=== PATIENT | female | born 1950 | race Caucasian/White ===

== ENCOUNTER → 2016-12-08 | Outpatient (CLI) | payer OTHER | LOC: CIMAGING 14:26 | PROVIDERS: ATTEND Internal Medicine | DX: Z12.31 Encounter for screening mammogram for malignant neoplasm of breast (principal); Z80.3 Family history of malignant neoplasm of breast | CPT/HCPCS: G0202 ==

== ENCOUNTER → 2016-12-18 | Outpatient (CLI) | payer OTHER | LOC: BRMIMAGING 14:45 | PROVIDERS: ATTEND Nurse Practitioner Adult Health | DX: Z13.820 Encounter for screening for osteoporosis (principal); M85.80 Other specified disorders of bone density and structure, unspecified site ==

== ENCOUNTER → 2018-04-09 | Outpatient (CLI) | payer OTHER | LOC: CIMAGING 11:00 | PROVIDERS: ATTEND Internal Medicine | DX: Z12.31 Encounter for screening mammogram for malignant neoplasm of breast (principal); Z80.3 Family history of malignant neoplasm of breast ==

== ENCOUNTER → 2018-06-16 | Outpatient (CLI) | payer OTHER | LOC: SUPIMAGING 13:03 | PROVIDERS: ATTEND Nurse Practitioner Family | DX: R91.8 Other nonspecific abnormal finding of lung field (principal); R53.81 Other malaise; R53.83 Other fatigue; M47.894 Other spondylosis, thoracic region; Z87.01 Personal history of pneumonia (recurrent) | CPT/HCPCS: 71046-PN ==

== ENCOUNTER → 2018-08-12 | Outpatient (CLI) | payer OTHER | LOC: BMCIMAGING 15:00 | PROVIDERS: ATTEND Physician Assistant | DX: K59.00 Constipation, unspecified (principal) ==